=== PATIENT | male | born 1970 | race American Indian/Alaskan Native ===

== ENCOUNTER 2019-05-14 20:35 | Emergency (ER) | payer SELFPAY ==
--- NOTE | 2019-05-14 21:58 | Event Note ---
ED Screening Note ED Screening Note: pt presents to the ED with c/o right middle finger edema last night clipped nails short no drainage from the finger pt has a paronychia PMHx HTN- not taking his medicine This initial assessment/diagnostic orders/clinical plan/treatment(s) is/are subject to change based on patients health status, clinical progression and re- assessment by fellow clinical providers in the ED. Further treatment and workup at subsequent clinical providers discretion. Patient/guardian urged not to elope from the ED as their condition may be serious if not clinically assessed and managed.
[2019-05-15] MEDS ORDERED: NORCO 5/325 PO ONE (01:31)
--- NOTE | 2019-05-15 01:35 | Emergency Department Report ---
ED Upper Extremity Inj HPI - General Chief Complaint: Extremity Injury, Upper Stated Complaint: FINGER PAIN Time Seen by Provider: 05/14/19 21:56 Source: patient Mode of arrival: Ambulatory Limitations: No Limitations - History of Present Illness Initial Comments: pt presents for left middle finger paronychia pt states 5/10 pain throbbing s/p attempted self I&D at home , pain now 5/10 throbbing and swelling around nail bed. Complaint: Injury to:: left Onset/Timin -: days(s) Other Extremity Injury: Fingers: Left (middle finger ) Handedness: right Place: work Severity scale (0 -10): 5 Improves With: none Worsens With: movement of extremity Context: other (cut with eyebrow razor ) Associated Symptoms: denies other symptoms - Related Data Previous Rx's Medication Instructions Recorded Last Taken Type cephALEXin [Keflex] 500 mg PO Q8HR 10 Days #30 cap 05/15/19 Unknown Rx traMADol [Ultram] 50 mg PO Q6HR PRN #12 tablet 05/15/19 Unknown Rx Allergies Allergy/AdvReac Type Severity Reaction Status Date / Time No Known Allergies Allergy Unverified 05/14/19 22:00 ED Review of Systems ROS: Stated complaint: FINGER PAIN Other details as noted in HPI Constitutional: denies: chills, fever Eyes: denies: eye pain, eye discharge, vision change ENT: denies: ear pain, throat pain Respiratory: denies: cough, shortness of breath, wheezing Cardiovascular: denies: chest pain, palpitations Endocrine: no symptoms reported Gastrointestinal: denies: abdominal pain, nausea, diarrhea Genitourinary: denies: urgency, dysuria Musculoskeletal: other (left middle finger nail pain swelling redness ). denies: back pain, joint swelling, arthralgia Skin: denies: rash, lesions Neurological: denies: headache, weakness, paresthesias Psychiatric: denies: anxiety, depression Hematological/Lymphatic: denies: easy bleeding, easy bruising ED Past Medical Hx - Past Medical History Previous Medical History?: Yes Hx Hypertension: Yes - Surgical History Past Surgical History?: No - Social History Smoking Status: Never Smoker - Medications Home Medications: Home Medications Medication Instructions Recorded Confirmed Last Taken Type cephALEXin [Keflex] 500 mg PO Q8HR 10 Days #30 cap 05/15/19 Unknown Rx traMADol [Ultram] 50 mg PO Q6HR PRN #12 tablet 05/15/19 Unknown Rx ED Physical Exam - General Limitations: No Limitations General appearance: alert, in no apparent distress - Head Head exam: Present: atraumatic, normocephalic - Eye Eye exam: Present: normal appearance, PERRL, EOMI Pupils: Present: normal accommodation - ENT ENT exam: Present: mucous membranes moist - Neck Neck exam: Present: normal inspection - Respiratory Respiratory exam: Present: normal lung sounds bilaterally. Absent: respiratory distress - Cardiovascular Cardiovascular Exam: Present: regular rate, normal rhythm. Absent: systolic murmur, diastolic murmur, rubs, gallop - GI/Abdominal GI/Abdominal exam: Present: soft, normal bowel sounds - Rectal Rectal exam: Present: deferred - Extremities Exam Extremities exam: Present: full ROM, tenderness, normal capillary refill, joint swelling, calf tenderness. Absent: pedal edema - Expanded Upper Extremity Exam Left Hand Wrist exam: Present: tenderness (left middle finger nail bed ), swelling, erythema. Absent: abrasion, laceration, ecchymosis, deformity, crepidus, dislocation, amputation, nail avulsion, subungual hematoma Neuro motor exam: Present: wrist extension intact, thumb opposition intact, thumb IP flexion intact, thumb adduction intact, fingers 2-5 abduction intact Neurosensory exam: Present: 2-point discrimination, radial nerve intact, ulnar nerve intact, median nerve intact Vascular: Present: normal capillary refill, radial pulse, brachial pulse, ulnar pulse. Absent: pulse deficit radial art, pulse deficit ulnar art, pulse deficit brachial art - Back Exam Back exam: Present: normal inspection, full ROM. Absent: tenderness, rash noted - Neurological Exam Neurological exam: Present: alert, oriented X3, CN II-XII intact, normal gait, reflexes normal. Absent: motor sensory deficit - Psychiatric Psychiatric exam: Present: normal affect, normal mood - Skin Skin exam: Present: warm, dry, intact, normal color. Absent: rash ED Course Vital Signs 05/14/19 05/15/19 21:57 00:35 Temperature 97.9 F 98 F Pulse Rate 85 83 Respiratory 20 16 Rate Blood Pressure 182/135 Blood Pressure 189/132 [Left] O2 Sat by Pulse 98 99 Oximetry - I & D Left Finger Type of Procedure: Simple Site: left middle finger nail bed erythema swelling Blade Size: 11 I & D Procedure: betadine prep Progress: site cleaned with Betadine solution anesthesia with 1% lidocaine plain via digital block incision with 11 blade scaple, x 1 moderate purulent drainage noted , wound irrigate d with 10 cc sterile saline nail bed swept with swap, all bleeding is controlled, sterile dressing is applied pt given wound care instructions verbalized agreement and understanding of same. pt tolerated procedure with minimal distress. , ED Medical Decision Making - Medical Decision Making paronychia left middle finger. Critical care attestation.: If time is entered above; I have spent that time in minutes in the direct care of this critically ill patient, excluding procedure time. ED Disposition Clinical Impression: Paronychia Disposition: TO HOME OR SELFCARE Is pt being admited?: No Does the pt Need Aspirin: No Condition: Stable Instructions: Paronychia (ED) Prescriptions: cephALEXin [Keflex] 500 mg PO Q8HR 10 Days #30 cap traMADol [Ultram] 50 mg PO Q6HR PRN #12 tablet PRN Reason: Pain Referrals: BRUNILDA MONROE MD [Primary Care Provider] - 3-5 Days Forms: Work/School Release Form(ED) Time of Disposition: 01:32
[2019-05-15] MEDS ORDERED: CATAPRES PO ONE (01:46)
[2019-05-15 01:55] VITALS: BP 195/133
== END 2019-05-15 00:35 | disposition home or self-care (01) ==
LOC: ED 20:35
DX: L03.012 Cellulitis of left finger (principal); I10 Essential (primary) hypertension

== ENCOUNTER 2019-06-21 09:59 | Emergency (ER) | payer SELFPAY ==
--- NOTE | 2019-06-21 11:54 | Emergency Department Report ---
ED Neck Pain/Injury HPI - General Chief Complaint: Headache Stated Complaint: HEADACHE Time Seen by Provider: 06/21/19 11:18 Source: patient Mode of arrival: Ambulatory Limitations: No Limitations - History of Present Illness Initial Comments: 48-year-old male here report that he has not taken his blood pressure medication 1-1/2 month and he is concerned about that. He states he just moved from [place] and he was taking hydrochlorothiazide and lisinopril but he ran out. He states that he is in the process of getting a primary care doctor. Patient reported triage that he was having headache but to me he said that pain is in the base of his neck and radiated to the back of his head. He reports pain is 7 out of 10 and comes and goes. He said since he has been here the pain has gone from 7 out of 10-3 out of 10. Denies any nausea vomiting. Denies any blurred vision. Denies any dizziness, chest pain or shortness of breath. The only medical problem is high blood pressure and he has had similar pain in the past. Denies any neck injury, fever or chills or neck stiffness. MD Complaint: neck pain, upper back pain Onset/Timin -: days(s) Place: home Radiation: head, occiput Severity: severe, intermittent Severity scale (0 -10): 7 Quality: sharp, aching Consistency: intermittent Improves With: none Worsens With: none Context: unknown Associated Symptoms: headache (pain in the back of his head that is radiating from is upper back and base of his neck), other (elevated blood pressure). denies: fever, numbness, tingling, weakness, vertigo, difficulty walking, swollen glands, difficulty swallowing, nausea, vomiting Treatments Prior to Arrival: none - Related Data Previous Rx's Medication Instructions Recorded Last Taken Type cephALEXin [Keflex] 500 mg PO Q8HR 10 Days #30 cap 05/15/19 Unknown Rx traMADol [Ultram] 50 mg PO Q6HR PRN #12 tablet 05/15/19 Unknown Rx Acetaminophen [Acetaminophen ER] 650 mg PO Q8H PRN #15 tablet.er 06/21/19 Unknown Rx Lisinopril [Zestril TAB] 10 mg PO QDAY 30 Days #30 tablet 06/21/19 Unknown Rx hydroCHLOROthiazide [HCTZ] 25 mg PO QDAY 30 Days #30 tablet 06/21/19 Unknown Rx Allergies Allergy/AdvReac Type Severity Reaction Status Date / Time No Known Allergies Allergy Unverified 05/14/19 22:00 ED Review of Systems ROS: Stated complaint: HEADACHE Other details as noted in HPI Constitutional: denies: chills, fever Eyes: denies: eye pain, vision change ENT: denies: throat pain Respiratory: denies: cough, shortness of breath, wheezing Cardiovascular: denies: chest pain, palpitations, dyspnea on exertion, edema, syncope Gastrointestinal: denies: abdominal pain, nausea, vomiting Musculoskeletal: back pain (upper back pain and neck pain), arthralgia (neck pain). denies: joint swelling, myalgia Skin: denies: rash Neurological: headache (pain radiating from upper back and base of neck to back of head). denies: weakness, numbness, paresthesias, confusion, abnormal gait, vertigo ED Past Medical Hx - Past Medical History Previous Medical History?: Yes Hx Hypertension: Yes - Surgical History Past Surgical History?: No - Family History Family history: hypertension - Social History Smoking Status: Never Smoker Substance Use Type: Marijuana - Medications Home Medications: Home Medications Medication Instructions Recorded Confirmed Last Taken Type cephALEXin [Keflex] 500 mg PO Q8HR 10 Days #30 cap 05/15/19 Unknown Rx traMADol [Ultram] 50 mg PO Q6HR PRN #12 tablet 05/15/19 Unknown Rx Acetaminophen [Acetaminophen ER] 650 mg PO Q8H PRN #15 tablet.er 06/21/19 Unknown Rx Lisinopril [Zestril TAB] 10 mg PO QDAY 30 Days #30 tablet 06/21/19 Unknown Rx hydroCHLOROthiazide [HCTZ] 25 mg PO QDAY 30 Days #30 tablet 06/21/19 Unknown Rx ED Physical Exam - General Limitations: No Limitations General appearance: alert, in no apparent distress - Head Head exam: Present: atraumatic, normocephalic, normal inspection - Eye Eye exam: Present: normal appearance, PERRL, EOMI. Absent: nystagmus, periorbital swelling, periorbital tenderness Pupils: Present: normal accommodation - ENT ENT exam: Present: normal exam, normal orophraynx, mucous membranes moist - Neck Neck exam: Present: normal inspection, full ROM, other (no C-spine tenderness). Absent: tenderness, meningismus, lymphadenopathy - Respiratory Respiratory exam: Present: normal lung sounds bilaterally. Absent: respiratory distress, chest wall tenderness - Cardiovascular Cardiovascular Exam: Present: regular rate, normal rhythm, normal heart sounds, other (pressure is elevated) - GI/Abdominal GI/Abdominal exam: Present: soft, normal bowel sounds. Absent: tenderness - Extremities Exam Extremities exam: Present: normal inspection, full ROM, normal capillary refill, other (No cce. + 2 pulses in all extremities, no neurovascular compromise). Absent: tenderness, pedal edema, joint swelling - Back Exam Back exam: Present: normal inspection, full ROM, other (ambulates without any difficulties). Absent: tenderness, CVA tenderness (R), CVA tenderness (L), muscle spasm, paraspinal tenderness, vertebral tenderness, rash noted - Neurological Exam Neurological exam: Present: alert, oriented X3, normal gait, reflexes normal. Absent: motor sensory deficit - Expanded Neurological Exam Expanded Neurological exam: Absent: innattentive, memory loss-remote event, memory loss- recent event, ataxia, receptive aphasia, expressive aphasia, total aphasia, trem or, protecting the airway Patient oriented to: Present: person, place, time Speech: Present: fluid speech Cranial nerves: EOM's Intact: Normal, Gag Reflex: Normal, Tongue Deviation: Normal, Nystagmus: Normal, Facial Sensation: Normal Cerebellar function: Finger to Nose: Normal, Romberg: Normal Upper motor neuron: Pronator Drift: Normal, Sensory Extinction: Normal Sensory exam: Upper Extremity Light Touch: Normal, Upper Extremity Temperature: Normal, Lower Extremity Light Touch: Normal, Lower Extremity Temperature: Normal Motor strength exam: RUE: 5, LUE: 5, RLE: 5, LLE: 5 DTR: bicep (R): 1+, bicep (L): 1+, tricep (R): 1+, tricep (L): 1+, knee (R): 1+, knee (L): 1+ Best Eye Response ([place]): (4) open spontaneously Best Motor Response ([place]): (6) obeys commands Best Verbal Response ([place]): (5) oriented [place] Total: 15 - Psychiatric Psychiatric exam: Present: normal affect, normal mood - Skin Skin exam: Present: warm, dry, intact, normal color. Absent: rash ED Course Vital Signs 06/21/19 06/21/19 06/21/19 10:18 12:03 13:16 Temperature 98.3 F Pulse Rate 67 74 70 Respiratory 22 Rate Blood Pressure 170/113 168/110 Blood Pressure 164/100 [Left] O2 Sat by Pulse 100 Oximetry - Reevaluation(s) Reevaluation #1: 06/21/19 13:52 Patient given lisinopril 20 mg by mouth, HCTZ 25 mg and blood pressure is better and he was also given Tylenol 975 mg by mouth for pain and pain is now down to 2 out of 10 ED Medical Decision Making - Medical Decision Making This is a 48-year-old male here for blood pressure elevation and and requested a refill because he has not taken his blood pressure medication in the month and a half. He is also complaining of pain to his upper back and base of his neck and radiated to the back of his head. He is neurologically intact. He has had similar pain in the past. I discussed the patient that he needs to see primary care physician to manage his blood pressure and orthopedic doctor regarding his back and neck pain. He does have access to care. Patient was given blood pressure medication in emergency room and blood pressure has came down. He was also given Tylenol for pain and his pain is on store to 10. I discussed diagnosis, treatment plan and the consequences of having high blood pressure that untreated and he voiced understanding. Patient's referred to [facility] and also to orthopedic. He is stable and in no acute distress and discharged home in stable condition with a prescription for lisinopril, HCTZ and Tylenol. Critical care attestation.: If time is entered above; I have spent that time in minutes in the direct care of this critically ill patient, excluding procedure time. ED Disposition Clinical Impression: Musculoskeletal back pain, Neck pain without injury, Elevated blood pressure reading with diagnosis of hypertension Disposition: DC-01 TO HOME OR SELFCARE Is pt being admited?: No Does the pt Need Aspirin: No Condition: Stable Instructions: Hypertension (ED), Musculoskeletal Pain (ED) Additional Instructions: Follow-up with primary care and orthopedic doctor as discussed in 2-3 days Take Tylenol musculoskeletal pain If he continued to have symptoms this worsening, return to the emergency room Take blood pressure medicine as prescribed and ensure that he take medication everyday keep a log of blood pressure and schedule an appointment with primary care intake along with you. [facility] TER[facility]A [Primary Care Provider] - 2-3 Days DEE DEE CHOWDHURY MD [Staff Physician] - 2-3 Days Forms: Work/School Release Form(ED)
[2019-06-21] MEDS ORDERED: TYLENOL PO ONE (11:57)
[2019-06-21] MEDS ORDERED: ZESTRIL PO ONE (11:57)
[2019-06-21] MEDS ORDERED: HCTZ PO ONE (11:57)
[2019-06-21 13:17] VITALS: BP 164/100
== END 2019-06-21 14:09 | disposition home or self-care (01) ==
LOC: ED 09:59
DX: M54.6 Pain in thoracic spine (principal); M54.2 Cervicalgia; I10 Essential (primary) hypertension; F12.10 Cannabis abuse, uncomplicated; Z79.899 Other long term (current) drug therapy